=== PATIENT | male | born 1960 | race Caucasian/White ===

== ENCOUNTER → 2016-08-30 | Outpatient (CLI) | payer BC ==
[~2016-08-30] MED LIST: ATOR10TA88 PO; CHOL2000 PO; CLC100 PO; CPR500 PO; FLUT0.15 NAE; HYDR-3419 PO; LISI1TAB3 PO; METF-384 PO; OXYC-57 PO; PRLSR20 PO
== END | disposition home or self-care (01) ==
LOC: C.LAB 16:44
PROVIDERS: ATTEND Nurse Practitioner Family
DX: N40.1 Benign prostatic hyperplasia with lower urinary tract symptoms (principal)

== ENCOUNTER → 2017-01-08 | Outpatient (CLI) | payer BC ==
[~2017-01-08] MED LIST changes: +ATOR10TA82 PO; -ATOR10TA88 PO
--- NOTE | 2017-01-08 14:19 | DIAGNOSTIC IMAGING REPORT ---
KUB HISTORY: N20.0 [id number] COMPARISON: KUB 04/04/2016. Abdomen and pelvis CT 10/23/2009. FINDINGS: The bowel gas pattern is unremarkable. There are no dilated loops of small bowel to suggest an obstruction. No right renal or ureteral calculi identified. Stable faint 8 mm density overlying the lower pole the left kidney. This may represent a renal stone. Stable calcifications in the deep pelvis consistent with phleboliths. No pneumoperitoneum or pneumatosis. IMPRESSION: Stable faint 8 mm density overlying the lower pole of the left kidney. This favors a renal stone. No ureteral calculi. Electronically signed by: Jorge A Morales M.D. 01/08/2017 2:18 PM Dictated Date/Time: 01/08/2017 2:16 PM
== END ==
LOC: C.RAD 13:21
PROVIDERS: ATTEND Urology
DX: N20.0 Calculus of kidney (principal); N40.1 Benign prostatic hyperplasia with lower urinary tract symptoms

== ENCOUNTER → 2017-02-04 | Outpatient (CLI) | payer BC ==
[~2017-02-04] MED LIST changes: -ATOR10TA82 PO; +ATOR10TA88 PO
--- NOTE | 2017-02-04 16:14 | DIAGNOSTIC IMAGING REPORT ---
KUB WITH TOMOGRAPHY CLINICAL HISTORY: Nephrolithiasis COMPARISON STUDY: 01/08/2017 FINDINGS: 2 supine views the abdomen are supplemented with 7 tomographic images. The bowel gas pattern is unremarkable. There is a 3.5 mm density projected over the periphery of the left kidney. This is more lateral than one would expect for a calculus. There is a very faint 8 mm opacity projected over the lower pole of the left kidney. A faint calculus cannot be excluded. CT scanning might be considered in follow-up to confirm or refute the presence of a faint calculus. IMPRESSION: Equivocal 8 mm lower pole left renal calculus. A noncontrast CT scan might be considered in follow-up to confirm or refute the presence of a true calculus. Electronically signed by: Eddie Block M.D. 02/04/2017 4:09 PM Dictated Date/Time: 02/04/2017 4:05 PM
== END | disposition home or self-care (01) ==
LOC: C.RAD 15:32
PROVIDERS: ATTEND Urology
DX: N20.0 Calculus of kidney (principal)

== ENCOUNTER → 2017-02-10 | Day surgery (SDC) | payer BC ==
[2017-02-04 07:36] VITALS: BMI 34.0
[~2017-02-10] VITALS: Ht 177.8 cm; Wt 106.8 kg
[~2017-02-10] MED LIST changes: -CLC100 PO; -CPR500 PO; +LIDOCAINE HCL 2% 2 ML VIAL (20MG/ML) ONE; -OXYC-57 PO; +PROPOFOL IV EMULSION 10 MG/ML 20 ML VIAL IV ONE; +SODIUM CHLORIDE 0.9% 500ML 500 ML IV ONE
[2017-02-10 12:26] VITALS: Ht 177.8 cm; Wt 106.8 kg
[2017-02-10 12:29] VITALS: TEMP 37
--- NOTE | 2017-02-10 13:18 | Endo History and Physical ---
History & Physical Date of Service: Feb 10, 2017. Chief Complaint: Hx Barretts Esophagus Referring Physician: Dr. Rojas History of Present Illness 56 yo CM who presents for EGD secondary to Pan's Esophagus. Past Surgical History Hx Cardiac Surgery: No Hx Internal Defibrillator: No Hx Pacemaker: No Hx Abdominal Surgery: No Hx of Implantable Prosthesis: No Hx Post-Op Nausea and Vomiting: No Hx Cancer Surgery: No Hx Thoracic Surgery: No Hx Orthopedic: No Hx Urinary Tract Surgery: Yes (MULTIPLE LITHOTRIPSIES AND URETAL STENTS, TURP) Family History IBD Social History Smoking Status: Never Smoker Hx Substance Use: No Hx Alcohol Use: No Allergies Coded Allergies: No Known Allergies (Verified , 02/04/17) Current Medications Reported Home Medications Medications Dose Route/Sig Max Daily Dose Days Date Category Flonase Allergy Relief (Fluticasone Propionate (Nasal)) 50 Mcg/Act Spr 1 [place] ALBERTO DAILY PRN 07/03/16 Reported Glucophage (Metformin Hcl) 1,000 Mg Tab 1,000 Mg PO BID 07/03/16 Reported Zestril (Lisinopril) 30 Mg Tab 30 Mg PO QAM 07/03/16 Reported Lipitor (Atorvastatin Calcium) 10 Mg Tab 10 Mg PO QAM 07/03/16 Reported Vitamin D3 (Cholecalciferol) 2,000 Unit Cap 2,000 Units PO QAM 10/21/13 Reported Prilosec (Omeprazole) 20 Mg Capcr 20 Mg PO QAM 05/04/13 Reported Vital Signs Weight (Kilograms): 106.82 Height (Feet): 5 Height (Inches): 10 Date Time Temp Pulse Resp B/P (MAP) Pulse Ox O2 Delivery O2 Flow Rate FiO2 02/10/17 12:29 37 76 18 124/69 (87) 95 Room Air Physical Exam General Appearance: WD/WN, no apparent distress Respiratory/Chest: Auscultation: breath sounds normal Cardiovascular: Heart Auscultation: RRR Abdomen: Bowel Sounds: normal Inspection & Palpation: soft, non-distended, no tenderness, guarding & rebound Assessment and Plan Assessment: 56 yo CM who presents for EGD secondary to Pan's Esophagus. Plan: Proceed with EGD.
--- NOTE | 2017-02-10 13:29 | Discharge Instructions ---
Endoscopy Patient Instructions Date / Procedure(s) Performed Feb 10, 2017. EGD Allergy Information Coded Allergies: No Known Allergies (Verified , 02/04/17) Discharge Date / Findings Feb 10, 2017. Pan's Esophagus s/p biopsies Hiatal hernia Medication Instructions OK to resume all medications today as prescribed Reported Home Medications Medications Dose Route/Sig Max Daily Dose Days Date Category Flonase Allergy Relief (Fluticasone Propionate (Nasal)) 50 Mcg/Act Spr 1 [place] ALBERTO DAILY PRN 07/03/16 Reported Glucophage (Metformin Hcl) 1,000 Mg Tab 1,000 Mg PO BID 07/03/16 Reported Zestril (Lisinopril) 30 Mg Tab 30 Mg PO QAM 07/03/16 Reported Lipitor (Atorvastatin Calcium) 10 Mg Tab 10 Mg PO QAM 07/03/16 Reported Vitamin D3 (Cholecalciferol) 2,000 Unit Cap 2,000 Units PO QAM 10/21/13 Reported Prilosec (Omeprazole) 20 Mg Capcr 20 Mg PO QAM 05/04/13 Reported Provider Instructions Activity Restrictions - No exercising or heavy lifting for 24 hours. - Do not drink alcohol the day of the procedure. - Do not drive a car or operate machinery until the day after the procedure. - Do not make any important decisions or sign important papers in 24 hours after the procedure. Following Day: - Return to full activity which may include returning to work/school. Diet Start your diet with liquids and light foods (jello, soup, juice, toast). Then eat your usual diet if not nauseated. Treatment For Common After Affects For mild abdominal pain, bloating, or excessive gas: - Rest - Eat lightly - Lie on right side Follow-Up Information Follow-up with Dr. Rojas as scheduled Anesthesia Information What You Should Know You have had a procedure that required some medicine to reduce anxiety and discomfort. This treatment is called moderate sedation. After receiving the treatment, you may be sleepy, but you will be able to breathe on your own. The effects of the treatment may last for several hours. Follow these instructions along with Activity/Diet recommendations noted above: * Do NOT do anything where dizziness or clumsiness would be dangerous. * Rest quietly at home today, then you can be up and about tomorrow. * Have a responsible person stay with you the rest of today. * You may have had an I.V. today. If so, you may take the dressing off later today. Recommendations Call your doctor if: * Trouble breathing * Continuous vomiting for more than 24 hours * Temperature above 101 degrees * Severe abdominal pain or bloating * Pain not relieved by pain medicine ordered * There is increased drainage or redness from any incision * A large amount of rectal bleeding greater than 2-3 tablespoons. (If you had a polyp/s removed or have hemorrhoids, a small amount of blood - from the rectum is to be expected.) * You have any unanswered questions or concerns. IN THE EVENT OF A SERIOUS EMERGENCY, GO TO THE NEAREST EMERGENCY ROOM Your discharge instructions were prepared by provider Lee Miller. Patient Instructions Signature Page Eugenio Faye Patient (or Guardian) Signature/Date: I have read and understand the instructions given to me by my caregivers. Caregiver/RN/Doctor Signature/Date: The above-named patient and/or guardian has received patient instructions on this date. + Original Patient Signature Page (only) stays with chart. Please make copy for patient.
--- NOTE | 2017-02-10 13:33 | GI REPORT ---
Procedure Date: 02/10/2017 1:08 PM Procedure: Upper GI endoscopy Indications: Follow-up of Pan's esophagus Medicines: Monitored Anesthesia Care Complications: No immediate complications. Estimated Blood Loss: Estimated blood loss: none. Procedure: Pre-Anesthesia Assessment: - Prior to the procedure, a History and Physical was performed, and patient medications and allergies were reviewed. The patient's tolerance of previous anesthesia was also reviewed. The risks and benefits of the procedure and the sedation options and risks were discussed with the patient. All questions were answered, and informed consent was obtained. Prior Anticoagulants: The patient has taken no previous anticoagulant or antiplatelet agents. ASA Grade Assessment: III - A patient with severe systemic disease. After reviewing the risks and benefits, the patient was deemed in satisfactory condition to undergo the procedure. After obtaining informed consent, the endoscope was passed under direct vision. Throughout the procedure, the patient's blood pressure, pulse, and oxygen saturations were monitored continuously. The scope was introduced through the mouth, and advanced to the second part of duodenum. The upper GI endoscopy was accomplished without difficulty. The patient tolerated the procedure well. Findings: There were esophageal mucosal changes consistent with short-segment Pan's esophagus present at the gastroesophageal junction. The maximum longitudinal extent of these mucosal changes was 2 cm in length. Mucosa was biopsied with a cold forceps for histology. One specimen bottle was sent to pathology. A medium-sized hiatus hernia was present. The examined duodenum was normal. Impression: - Esophageal mucosal changes consistent with short-segment Pan's esophagus. Biopsied. - Medium-sized hiatus hernia. - Normal examined duodenum. Recommendation: - Resume previous diet. - Continue present medications. - Await pathology results. - Return to primary care physician as previously scheduled. Lee Miller DO 02/10/2017 1:33:24 PM This report has been signed electronically. Note Initiated On: 02/10/2017 1:08 PM I attest to the content of the Intraoperative Record and orders documented therein, exceptions below
[2017-02-10 14:02] VITALS: BP 114/76; PULSE 72; O2SAT 96
--- NOTE | 2017-02-10 14:04 | Anesthesiology Progress Note ---
Anesthesia Post Op Note Date & Time Feb 10, 2017 at 14:04 Vital Signs Pain Intensity: 0 Vital Signs Past 12 Hours Date Time Temp Pulse Resp B/P (MAP) Pulse Ox O2 Delivery O2 Flow Rate FiO2 02/10/17 14:02 72 18 114/76 (89) 96 Room Air 02/10/17 13:48 79 18 112/70 (84) 96 Room Air 02/10/17 13:33 87 18 106/62 (77) 98 Room Air 02/10/17 12:29 37 76 18 124/69 (87) 95 Room Air Notes Mental Status: alert / awake / arousable, participated in evaluation Pt Amnestic to Procedure: Yes Nausea / Vomiting: adequately controlled Pain: adequately controlled Airway Patency, RR, SpO2: stable & adequate BP & HR: stable & adequate Hydration State: stable & adequate Anesthetic Complications: no major complications apparent
== END | disposition home or self-care (01) ==
LOC: C.GI 12:03
PROVIDERS: ATTEND Internal Medicine
DX: K22.70 Barrett's esophagus without dysplasia (principal); I10 Essential (primary) hypertension; E78.5 Hyperlipidemia, unspecified; K21.9 Gastro-esophageal reflux disease without esophagitis; E11.9 Type 2 diabetes mellitus without complications; Z87.442 Personal history of urinary calculi

== ENCOUNTER → 2017-02-21 | Outpatient (CLI) | payer BC ==
[~2017-02-21] MED LIST changes: -LIDOCAINE HCL 2% 2 ML VIAL (20MG/ML) ONE; -PROPOFOL IV EMULSION 10 MG/ML 20 ML VIAL IV ONE; -SODIUM CHLORIDE 0.9% 500ML 500 ML IV ONE
--- NOTE | 2017-02-21 07:39 | DIAGNOSTIC IMAGING REPORT ---
CT OF THE ABDOMEN AND PELVIS WITHOUT CONTRAST CLINICAL HISTORY: Nephrolithiasis. Left-sided abdominal and back pain. COMPARISON STUDY: CT of the abdomen October 23, 2009 and KUB February 04, 2017. TECHNIQUE: Axial images of the abdomen and pelvis were obtained without IV contrast. Images were reviewed in the axial, sagittal, and coronal planes. A dose lowering technique was utilized adhering to the principles of ALARA. FINDINGS: Note is made of a 6 mm calculus within the lower pole of the left kidney. There is an additional punctate left midpole renal calculus. There are no ureteral calculi. There is no hydronephrosis. Evaluation the remainder of the abdomen and pelvis is suboptimal on this unenhanced exam. There is fatty infiltration of the liver. The spleen, adrenal glands and pancreas are unremarkable. A suspected 9 mm left hepatic lobe cyst is unchanged since CT of October 23, 2009. This is benign. There is no evidence for a bowel obstruction. There is no lymphadenopathy. There are no suspicious osseous lesions. The appendix is normal. IMPRESSION: 1. 6 mm calculus within the lower pole of the left kidney. Additional punctate left renal calculus. 2. No ureteral calculi. No hydronephrosis. Electronically signed by: Laureano Escobar M.D. 02/21/2017 7:37 AM Dictated Date/Time: 02/21/2017 7:28 AM
== END | disposition home or self-care (01) ==
LOC: C.CTS 06:58
PROVIDERS: ATTEND Urology
DX: N20.0 Calculus of kidney (principal)

== ENCOUNTER → 2017-03-03 | Outpatient (CLI) | payer BC ==
[2017-03-03 12:08] LABS: BASO % 0.5 %; BASO ABS # 0.04 K/uL (0-0.2); COMPLETE YES; EOS % 3.7 %; HEMATOCRIT 45.1 % (42-52); IG% 0.5 %; LYMPH % 32.5 %; LYMPH ABS # 2.47 K/uL (1.2-3.4); MEAN CELL VOLUME 90.9 fL (80-100); MEAN CORPUSCULAR HEMOGLOBIN 31.5 pg (25-34); MEAN CORPUSCULAR HGB CONC 34.6 g/dl (32-36); MEAN PLATELET VOLUME 9.9 fL (7.4-10.4); MONO % 9.6 %; NEUT % 53.2 %; PLATELET COUNT 221 K/uL (130-400); RED BLOOD COUNT 4.96 M/uL (4.7-6.1)
[2017-03-03 12:42] LABS: BLOOD UREA NITROGEN 17 mg/dl (7-18); BUN/CREATININE RATIO 19.2 (10-20); CALCIUM 9.1 mg/dl (8.5-10.1); CARBON DIOXIDE 29 mmol/L (21-32); CHLORIDE 104 mmol/L (98-107); CREATININE 0.86 mg/dl (0.60-1.40); GLUCOSE 157 mg/dl (70-99); POTASSIUM 4.1 mmol/L (3.5-5.1); SODIUM 139 mmol/L (136-145)
== END | disposition home or self-care (01) ==
LOC: C.LAB 11:07
PROVIDERS: ATTEND Urology
DX: N20.0 Calculus of kidney (principal)

== ENCOUNTER → 2017-03-20 | Outpatient (CLI) | payer BC ==
--- NOTE | 2017-03-20 10:56 | DIAGNOSTIC IMAGING REPORT ---
KUB HISTORY: N20.0 [id number] COMPARISON: None CT abdomen and pelvis 02/21/2017, KUB 02/04/2017. FINDINGS: The bowel gas pattern is non-obstructive. There is no organomegaly. The previously noted 6 mm calculus of the inferior pole left kidney is not definitely seen. No ureteral calculi are identified. No pneumoperitoneum or pneumatosis. No fracture. IMPRESSION: Previously noted 6 mm calculus of the inferior pole left kidney is not definitely seen. No ureteral calculi. Electronically signed by: Yovani Molina M.D. 03/20/2017 10:54 AM Dictated Date/Time: 03/20/2017 10:52 AM
== END | disposition home or self-care (01) ==
LOC: C.RAD 10:37
PROVIDERS: ATTEND Urology
DX: N20.0 Calculus of kidney (principal)

== ENCOUNTER → 2017-03-21 | Day surgery (SDC) | payer BC ==
[2017-03-05 11:04] VITALS: Ht 177.8 cm; Wt 106.8 kg
[~2017-03-21] VITALS: Ht 177.8 cm; Wt 106.8 kg
[~2017-03-21] MED LIST changes: +ATROPINE SULFATE 0.1 MG/ML 5ML SYR IV PRN; +CIPROFLOXACIN / D5W 400 MG IV SCH; +CIPROFLOXACIN 400MG / D5W IV SCH; +EpHEDrine SULFATE INJ 50 MG/ML AMP IV PRN; +EpHEDrine SULFATE INJ 50 MG/ML AMP ONE; +FENTANYL CITRATE INJ 50 MCG/1 ML 2 ML VIAL IV PRN; +FENTANYL CITRATE INJ 50 MCG/1 ML 2 ML VIAL ONE; +FLUMAZENIL 0.1 MG/1 ML 10 ML VIAL IV PRN; +HYDROmorphone INJ 2 MG/ML SYR/VIAL IV PRN; +LABETALOL HCL IV 5 MG/ML 20ML IV PRN; +LACTATED RINGER'S 1000ML 1,000 ML IV SCH; +LIDOCAINE HCL 2% 2 ML VIAL (20MG/ML) ONE; +MEPERIDINE HCL 25 MG/ML CARP IV PRN; +MIDAZOLAM HCL 1 MG/ML 2ML VIAL ONE; +NALOXONE HCL 0.4 MG/1 ML VIAL/CARP IV PRN; +ONDANSETRON INJ 2 MG/ML 2 ML VIAL IV PRN; +ONDANSETRON INJ 2 MG/ML 2 ML VIAL ONE; +PHENYLEPHRINE 100MCG/ML 5ML SYR IV PRN; +PROPOFOL IV EMULSION 10 MG/ML 20 ML VIAL IV ONE; +SODIUM CHLORIDE 0.9% INJ 10 ML VIAL ONE
--- NOTE | 2017-03-21 09:40 | History & Physical Bridge - SC ---
H&P Re-Evaluation Bridge Note: I have examined the patient, reviewed the History & Physical and in the interval since the performance of the History & Physical I have noted the following changes of clinical significance: No changes noted
--- NOTE | 2017-03-21 10:26 | [facility] Post Operative Brief Note ---
Immediate Operative Summary Operative Date Mar 21, 2017. Pre-Operative Diagnosis Left renal stone Post-Operative Diagnosis Left renal calculi Procedure(s) Performed Left Extracorporeal Shock Wave Lithotripsy - Renal Surgeon Dr. Dexter Mcbride Engineering Inspector Surgeon(s) None Estimated Blood Loss 0 mL Findings faint stone Specimens None Disposition Recovery Room / PACU
--- NOTE | 2017-03-21 10:28 | Discharge Instructions-SurgCtr ---
Discharge Instructions Date of Service Mar 21, 2017. Visit Reason for Visit: Stones Discharge Discharge Diagnosis / Problem: l lower pole stone Discharge Goals Goal(s): Improve disease control Medications Stopped Medications Name(s): Metformin, last dose 03/18/17 Activity Recommendations Activity Limitations: resume your previous activity Anesthesia . Post Anesthesia Instructions: If you have had General Anesthesia or IV Sedation: * Do not drive today. * Resume driving when surgeon permits. * Do not make important decisions or sign legal documents today. * Call surgeon for: 1. Temperature elevations greater than 101 degrees F. 2. Uncontrollable pain. 3. Excessive bleeding. 4. Persistent nausea and vomiting. 5. Medication intolerance (nausea, vomiting or rash). * For nausea and vomiting use only clear liquids such as: tea, soda, bouillon until nausea subsides, then gradually increase diet as tolerated. * If you have any concerns or questions, call your surgeon's office. If physician is unavailable and it is an emergency, call 911 or go to the nearest emergency room. . Diet Recommendations Home Diet: resume previous diet Procedures Procedures Performed: Left Extracorporeal Shock Wave Lithotripsy - Renal Pending Studies Studies pending at discharge: no Medical Emergencies . Who to Call and When: Medical Emergencies: If at any time you feel your situation is an emergency, please call 911 immediately. . Non-Emergent Contact Non-Emergency issues call your: Urologist Call Non-Emergent contact if: temperature is above 100.5 . . "Provider Documentation" section prepared by Amauri Mcbride. .
[2017-03-21 11:12] VITALS: TEMP 36.6
[2017-03-21 11:34] VITALS: BP 110/71; PULSE 60; O2SAT 98
--- NOTE | 2017-03-21 11:35 | Anesthesia Progress Nt - [facility] ---
Anesthesia Post Op Note Date & Time Mar 21, 2017 at 11:35 Vital Signs Pain Intensity: 0 Vital Signs Past 12 Hours Date Time Temp Pulse Resp B/P (MAP) Pulse Ox O2 Delivery O2 Flow Rate FiO2 03/21/17 11:34 60 20 110/71 (84) 98 03/21/17 11:12 36.6 64 20 110/72 (85) 99 Room Air 03/21/17 11:06 37.0 61 12 101/61 99 Room Air 03/21/17 11:05 101/61 03/21/17 11:04 75 12 98 03/21/17 11:04 74 12 03/21/17 11:00 110/67 03/21/17 10:59 63 8 03/21/17 10:59 62 8 99 03/21/17 10:55 104/65 03/21/17 10:54 62 1 03/21/17 10:54 63 1 97 03/21/17 10:50 110/68 03/21/17 10:49 59 2 100 03/21/17 10:49 60 2 03/21/17 10:45 110/70 03/21/17 10:44 69 1 100 03/21/17 10:44 67 1 03/21/17 10:40 104/71 03/21/17 10:39 63 8 03/21/17 10:39 63 8 99 03/21/17 10:35 105/77 03/21/17 10:34 36.2 70 12 120/78 99 Mask 6 03/21/17 10:34 66 03/21/17 10:34 66 120/78 98 03/21/17 08:00 36.6 65 16 121/76 (91) 97 Room Air Notes Mental Status: alert / awake / arousable, participated in evaluation Pt Amnestic to Procedure: Yes Nausea / Vomiting: adequately controlled Pain: adequately controlled Airway Patency, RR, SpO2: stable & adequate BP & HR: stable & adequate Hydration State: stable & adequate Anesthetic Complications: no major complications apparent
--- NOTE | 2017-03-21 11:48 | OPERATIVE REPORT ---
DATE OF OPERATION: 03/21/2017 PREOPERATIVE DIAGNOSIS: Left lower pole renal stone. POSTOPERATIVE DIAGNOSIS: Same. PROCEDURE PERFORMED: Left renal ESWL. SURGEON: Dr. Mcbride. ANESTHESIA: General. INDICATIONS: The patient is a 56-year-old male for very difficult to see left lower pole stone that was confirmed on CT scan. DESCRIPTION OF THE PROCEDURE: He presents today. It was imaged prior to putting him to sleep. He had Venodyne stockings placed, was given antibiotics and he was given general anesthesia. The stone was visualized in 2 views and posteriorly he was given 2500 shocks, the majority at level 5. At the end of the procedure, the patient was transferred to the recovery room in stable condition. I attest to the content of the Intraoperative Record and any orders documented therein. Any exception s are noted below.
== END | disposition home or self-care (01) ==
LOC: X.SURG 07:40
PROVIDERS: ATTEND Urology
DX: N20.0 Calculus of kidney (principal); N40.1 Benign prostatic hyperplasia with lower urinary tract symptoms; N13.8 Other obstructive and reflux uropathy; R10.11 Right upper quadrant pain; R79.89 Other specified abnormal findings of blood chemistry; K22.70 Barrett's esophagus without dysplasia; K50.10 Crohn's disease of large intestine without complications; R30.0 Dysuria; R35.1 Nocturia; R73.01 Impaired fasting glucose; N52.9 Male erectile dysfunction, unspecified; E66.9 Obesity, unspecified; E55.9 Vitamin D deficiency, unspecified; K75.81 Nonalcoholic steatohepatitis (NASH); Z79.899 Other long term (current) drug therapy

== ENCOUNTER → 2017-04-02 | Outpatient (CLI) | payer BC ==
[~2017-04-02] MED LIST changes: -ATROPINE SULFATE 0.1 MG/ML 5ML SYR IV PRN; -CIPROFLOXACIN / D5W 400 MG IV SCH; -CIPROFLOXACIN 400MG / D5W IV SCH; -EpHEDrine SULFATE INJ 50 MG/ML AMP IV PRN; -EpHEDrine SULFATE INJ 50 MG/ML AMP ONE; -FENTANYL CITRATE INJ 50 MCG/1 ML 2 ML VIAL IV PRN; -FENTANYL CITRATE INJ 50 MCG/1 ML 2 ML VIAL ONE; -FLUMAZENIL 0.1 MG/1 ML 10 ML VIAL IV PRN; -HYDROmorphone INJ 2 MG/ML SYR/VIAL IV PRN; -LABETALOL HCL IV 5 MG/ML 20ML IV PRN; -LACTATED RINGER'S 1000ML 1,000 ML IV SCH; -LIDOCAINE HCL 2% 2 ML VIAL (20MG/ML) ONE; -MEPERIDINE HCL 25 MG/ML CARP IV PRN; -MIDAZOLAM HCL 1 MG/ML 2ML VIAL ONE; -NALOXONE HCL 0.4 MG/1 ML VIAL/CARP IV PRN; -ONDANSETRON INJ 2 MG/ML 2 ML VIAL IV PRN; -ONDANSETRON INJ 2 MG/ML 2 ML VIAL ONE; -PHENYLEPHRINE 100MCG/ML 5ML SYR IV PRN; -PROPOFOL IV EMULSION 10 MG/ML 20 ML VIAL IV ONE; -SODIUM CHLORIDE 0.9% INJ 10 ML VIAL ONE
--- NOTE | 2017-04-02 16:05 | DIAGNOSTIC IMAGING REPORT ---
KUB CLINICAL HISTORY: Nephrolithiasis. FINDINGS: An AP supine abdominal radiograph is compared to study dated 03/20/2017 and correlated with abdominal CT dated 02/21/2017. There is a nonobstructed abdominal bowel gas pattern. There is no radiographic evidence of nephrolithiasis. No calcifications project along the course of the ureters. The bony structures appear intact. IMPRESSION: There is no radiographic evidence of nephrolithiasis on today's examination. Electronically signed by: Javed Herrera M.D. 04/02/2017 4:03 PM Dictated Date/Time: 04/02/2017 4:02 PM
== END | disposition home or self-care (01) ==
LOC: C.RAD 15:37
PROVIDERS: ATTEND Urology
DX: N20.0 Calculus of kidney (principal)

== ENCOUNTER → 2017-10-08 | Outpatient (CLI) | payer BC, OTHER ==
[~2017-10-08] MED LIST changes: +ATOR10TA82 PO; -ATOR10TA88 PO; -HYDR-3419 PO
== END | disposition home or self-care (01) ==
LOC: C.LABSPEC 13:10
PROVIDERS: ATTEND Urology
DX: N49.2 Inflammatory disorders of scrotum (principal)

== ENCOUNTER → 2017-12-10 | Outpatient (CLI) | payer OTHER ==
--- NOTE | 2017-12-10 08:19 | DIAGNOSTIC IMAGING REPORT ---
BILIARY ULTRASOUND CLINICAL HISTORY: Epigastric pain and elevated liver enzymes COMPARISON STUDY: 01/19/2013 FINDINGS: The liver is of increased echogenicity, a finding likely secondary to hepatic steatosis. There is focal fatty sparing adjacent to the gallbladder fossa. No gallstones are visualized. There is no gallbladder wall thickening. There is no ductal dilatation. The common bile duct measures 5 mm. There is no right-sided hydronephrosis. The pancreas appears normal as visualized. IMPRESSION: 1. Ultrasonographically normal gallbladder. No evidence of ductal dilatation 2. Hepatic steatosis Electronically signed by: Eddie Block M.D. 12/10/2017 8:18 AM Dictated Date/Time: 12/10/2017 8:16 AM
== END | disposition home or self-care (01) ==
LOC: C.ULTR 07:38
PROVIDERS: ATTEND Family Medicine
DX: R10.13 Epigastric pain (principal); R74.8 Abnormal levels of other serum enzymes; K76.0 Fatty (change of) liver, not elsewhere classified

== ENCOUNTER → 2018-03-02 | Day surgery (SDC) | payer BC, OTHER ==
[2018-02-19 10:22] VITALS: BMI 33.0
[~2018-03-02] VITALS: Ht 177.8 cm; Wt 104.5 kg
[~2018-03-02] MED LIST changes: +CIPROFLOXACIN 400MG / D5W IV SCH; +GLIP-199 PO; +LACTATED RINGER'S 1000ML 1,000 ML IV SCH; +LIDOCAINE HCL 2% 2 ML VIAL (20MG/ML) ONE; +LISI-863 PO; -LISI1TAB3 PO; +MIDAZOLAM HCL 1 MG/ML 2ML VIAL ONE; +ONDANSETRON INJ 2 MG/ML 2 ML VIAL ONE; +PROPOFOL IV EMULSION 10 MG/ML 20 ML VIAL ONE; +SODIUM CHLORIDE 0.9% 500ML 500 ML IV ONE
[2018-03-02 12:56] VITALS: Ht 177.8 cm; Wt 104.5 kg
--- NOTE | 2018-03-02 13:03 | Endo History and Physical ---
History & Physical Date of Service: Mar 02, 2018. Chief Complaint: Pan's Esophagus Referring Physician: Dr. Rojas History of Present Illness 57 yo CM who presents for EGD secondary to Pan's esophagus. Past Surgical History Hx Cardiac Surgery: No Hx Internal Defibrillator: No Hx Pacemaker: No Hx Abdominal Surgery: No Hx of Implantable Prosthesis: No Hx Post-Op Nausea and Vomiting: No Hx Cancer Surgery: No Hx Thoracic Surgery: No Hx Orthopedic: No Hx Urinary Tract Surgery: Yes (MULTIPLE LITHOTRIPSIES AND URETERAL STENTS, TURP ) Family History Colon CA, Polyp Social History Smoking Status: Never Smoker Hx Substance Use: No Hx Alcohol Use: Yes (OCC SOCIAL) Allergies Coded Allergies: No Known Allergies (Verified , 03/02/18) Current Medications Reported Home Medications Medications Dose Route/Sig Max Daily Dose Days Date Category Glipizide Er (Glipizide) 10 Mg Tab 1 Tab PO HS 90 02/19/18 Reported Flonase Allergy Relief (Fluticasone Propionate (Nasal)) 50 Mcg/Act Spr 1 [place] ALBERTO DAILY PRN 07/03/16 Reported Glucophage (Metformin Hcl) 1,000 Mg Tab 1,000 Mg PO BID 07/03/16 Reported Zestril (Lisinopril) 30 Mg Tab 30 Mg PO QAM 07/03/16 Reported Lipitor (Atorvastatin Calcium) 10 Mg Tab 10 Mg PO QAM 07/03/16 Reported Vitamin D3 (Cholecalciferol) 2,000 Unit Cap 2,000 Units PO QAM 10/21/13 Reported Prilosec (Omeprazole) 20 Mg Capcr 20 Mg PO QAM 05/04/13 Reported Vital Signs Weight (Kilograms): 104.55 Height (Feet): 5 Height (Inches): 10 Physical Exam General Appearance: WD/WN, no apparent distress Respiratory/Chest: Auscultation: breath sounds normal Cardiovascular: Heart Auscultation: RRR Abdomen: Bowel Sounds: normal Inspection & Palpation: soft, non-distended, no tenderness, guarding & rebound Assessment and Plan Assessment: 57 yo CM who presents for EGD secondary to Pan's esophagus. Plan: Proceed with EGD.
--- NOTE | 2018-03-02 14:41 | Discharge Instructions ---
Endoscopy Patient Instructions Date / Procedure(s) Performed Mar 02, 2018. EGD Allergy Information Coded Allergies: No Known Allergies (Verified , 03/02/18) Discharge Date / Findings Mar 02, 2018. Gastritis s/p biopsies Pan's Esophagus s/p biopsies Medication Instructions OK to resume all medications today as prescribed Reported Home Medications Medications Dose Route/Sig Max Daily Dose Days Date Category Glipizide Er (Glipizide) 10 Mg Tab 1 Tab PO HS 90 02/19/18 Reported Flonase Allergy Relief (Fluticasone Propionate (Nasal)) 50 Mcg/Act Spr 1 [place] ALBERTO DAILY PRN 07/03/16 Reported Glucophage (Metformin Hcl) 1,000 Mg Tab 1,000 Mg PO BID 07/03/16 Reported Zestril (Lisinopril) 30 Mg Tab 30 Mg PO QAM 07/03/16 Reported Lipitor (Atorvastatin Calcium) 10 Mg Tab 10 Mg PO QAM 07/03/16 Reported Vitamin D3 (Cholecalciferol) 2,000 Unit Cap 2,000 Units PO QAM 10/21/13 Reported Prilosec (Omeprazole) 20 Mg Capcr 20 Mg PO QAM 05/04/13 Reported Provider Instructions Activity Restrictions - No exercising or heavy lifting for 24 hours. - Do not drink alcohol the day of the procedure. - Do not drive a car or operate machinery until the day after the procedure. - Do not make any important decisions or sign important papers in 24 hours after the procedure. Following Day: - Return to full activity which may include returning to work/school. Diet Start your diet with liquids and light foods (jello, soup, juice, toast). Then eat your usual diet if not nauseated. Treatment For Common After Affects For mild abdominal pain, bloating, or excessive gas: - Rest - Eat lightly - Lie on right side Follow-Up Information Follow-up with DR. HANK MORALES as scheduled Anesthesia Information What You Should Know You have had a procedure that required some medicine to reduce anxiety and discomfort. This treatment is called moderate sedation. After receiving the treatment, you may be sleepy, but you will be able to breathe on your own. The effects of the treatment may last for several hours. Follow these instructions along with Activity/Diet recommendations noted above: * Do NOT do anything where dizziness or clumsiness would be dangerous. * Rest quietly at home today, then you can be up and about tomorrow. * Have a responsible person stay with you the rest of today. * You may have had an I.V. today. If so, you may take the dressing off later today. Recommendations Call your doctor if: * Trouble breathing * Continuous vomiting for more than 24 hours * Temperature above 101 degrees * Severe abdominal pain or bloating * Pain not relieved by pain medicine ordered * There is increased drainage or redness from any incision * A large amount of rectal bleeding greater than 2-3 tablespoons. (If you had a polyp/s removed or have hemorrhoids, a small amount of blood - from the rectum is to be expected.) * You have any unanswered questions or concerns. IN THE EVENT OF A SERIOUS EMERGENCY, GO TO THE NEAREST EMERGENCY ROOM Your discharge instructions were prepared by provider Lee Miller. Patient Instructions Signature Page Eugenio Faye Patient (or Guardian) Signature/Date: I have read and understand the instructions given to me by my caregivers. Caregiver/RN/Doctor Signature/Date: The above-named patient and/or guardian has received patient instructions on this date. + Original Patient Signature Page (only) stays with chart. Please make copy for patient.
--- NOTE | 2018-03-02 14:42 | Anesthesiology Progress Note ---
Anesthesia Post Op Note Date & Time Mar 02, 2018 at 14:42 Vital Signs Pain Intensity: 0 Vital Signs Past 12 Hours Date Time Temp Pulse Resp B/P (MAP) Pulse Ox O2 Delivery O2 Flow Rate FiO2 03/02/18 14:33 36.7 93 20 94/66 (75) 96 Room Air 03/02/18 13:04 37.1 95 20 103/57 (72) 94 Room Air Notes Mental Status: alert / awake / arousable, participated in evaluation Pt Amnestic to Procedure: Yes Nausea / Vomiting: adequately controlled Pain: adequately controlled Airway Patency, RR, SpO2: stable & adequate BP & HR: stable & adequate Hydration State: stable & adequate Anesthetic Complications: no major complications apparent
--- NOTE | 2018-03-02 14:53 | GI REPORT ---
Patient Name: Eugenio Faye Procedure Date: 03/02/2018 2:12 PM Date of : 1960 Admit Type: Outpatient Age: 57 Gender: Male Attending MD: Lee Miller DO Procedure: Upper GI endoscopy Providers: Lee Miller DO Referring MD: Geovany Rojas Indications: Follow-up of Pan's esophagus Medicines: Monitored Anesthesia Care Complications: No immediate complications. Estimated Blood Loss: Estimated blood loss: none. Procedure: Pre-Anesthesia Assessment: - Prior to the procedure, a History and Physical was performed, and patient medications and allergies were reviewed. The patient's tolerance of previous anesthesia was also reviewed. The risks and benefits of the procedure and the sedation options and risks were discussed with the patient. All questions were answered, and informed consent was obtained. Prior Anticoagulants: The patient has taken no previous anticoagulant or antiplatelet agents. ASA Grade Assessment: III - A patient with severe systemic disease. After reviewing the risks and benefits, the patient was deemed in satisfactory condition to undergo the procedure. After obtaining informed consent, the endoscope was passed under direct vision. Throughout the procedure, the patient's blood pressure, pulse, and oxygen saturations were monitored continuously. The scope was introduced through the mouth, and advanced to the second part of duodenum. The upper GI endoscopy was accomplished without difficulty. The patient tolerated the procedure well. Findings: There were esophageal mucosal changes consistent with short-segment Pan's esophagus present at the gastroesophageal junction. The maximum longitudinal extent of these mucosal changes was 3 cm in length. Mucosa was biopsied with a cold forceps for histology. One specimen bottle was sent to pathology. Localized mild inflammation characterized by erythema was found in the gastric antrum. Biopsies were taken with a cold forceps for histology. The examined duodenum was normal. Impression: - Esophageal mucosal changes consistent with short-segment Pan's esophagus. Biopsied. - Gastritis. Biopsied. - Normal examined duodenum. Recommendation: - Resume previous diet. - Continue present medications. - Await pathology results. - Return to primary care physician as previously scheduled. Lee Miller DO 03/02/2018 2:53:29 PM This report has been signed electronically. Note Initiated On: 03/02/2018 2:12 PM Number of Addenda: 0 I attest to the content of the Intraoperative Record and orders documented therein, exceptions below {[id number]}
[2018-03-02 15:02] VITALS: BP 98/66; PULSE 87; O2SAT 96
== END | disposition home or self-care (01) ==
LOC: C.GI 12:34
PROVIDERS: ATTEND Internal Medicine
DX: K22.70 Barrett's esophagus without dysplasia (principal); K29.50 Unspecified chronic gastritis without bleeding; Z80.0 Family history of malignant neoplasm of digestive organs